=== PATIENT | female | born 1960 ===

== ENCOUNTER 2017-03-31 05:38 | Inpatient (IN) | payer MEDICAID ==
[2016-01-05 09:55] VITALS: BMI 30.2
[2017-03-31] MEDS ORDERED: Sodium Chloride 0.9% 20 ML IV ONE (07:25)
[2017-03-31] MEDS ORDERED: Propofol 10 mg/ml Inj (20 ML) ONE (07:34)
[2017-03-31] MEDS ORDERED: Midazolam 2 MG/2 ML VIAL ONE (07:34)
[2017-03-31] MEDS ORDERED: Rocuronium 10 mg/ml (5 ml) ONE (07:36)
[2017-03-31] MEDS ORDERED: Albuterol HFA 90 mcg/actuation (8 g) ONE (07:42)
[2017-03-31] MEDS: Bupivacaine-Epi 0.5%-1:200,000 PF Inj IJ ONE ×2 (08:08→09:25)
[2017-03-31] MEDS: ceFAZolin IV 2 gm in Dextrose 2 GM/50 ML BAG IVPB ONE ×2 (08:15→09:10)
[2017-03-31] MEDS ORDERED: Neostigmine Methylsulfate 3mg/3ml Syringe IV ONE (10:48)
[2017-03-31] MEDS ORDERED: Clindamycin 2% Vaginal Cream(40 gm) ONE (11:17)
[2017-03-31] MEDS ORDERED: Morphine 4 MG/ML VIAL ONE (11:21)
[2017-03-31] MEDS: HYDROmorphone 0.5 mg/0.5 ml ISec IVP PRN ×2 (11:45→12:22)
--- NOTE | 2017-03-31 12:11 | PCM.SURG1 ---
Surgeon's Initial Post Op Note - Surgeon's Notes Surgeon: juliette rodriguez md Instructor Tap Dancing: fabricio CRUZ Type of Anesthesia: General Endo, Local Pre-Operative Diagnosis: Chronic pelvic pain. urinary incontinence Operative Findings: intrapelvic intraabominal adhesions. endomteriosis. normal bladder and ureters anatomy Post-Operative Diagnosis: Endometriosis. Stress urinary incontinence. Pelvic adhesion disease Operation Performed: Robotic assited Chung procedure (urethropexy). Robotic excision of endometriosis. Enterolysis. diagnostic cystoscopy Specimen/Specimens Removed: endometriosis Estimated Blood Loss: EBL {In ML}: 10 Blood Products Given: N/A Drains Used: No Drains Post-Op Condition: Good Date of Surgery/Procedure: 03/31/17 Time of Surgery/Procedure: 12:11
[2017-03-31] MEDS ORDERED: Oxycodone/Acetaminophen 5/325 mg Tab PO PRN (12:12)
[2017-03-31] MEDS: Sodium Chloride 0.9% 1,000 ML IV SCH ×2 (13:15→22:36)
[2017-03-31] MEDS: cefOXitin 2 GM in Sodium Chloride 0.9% 100 ML IVPB SCH ×2 (13:50→22:14)
[2017-04-01 00:12] VITALS: RESP 20
[2017-04-01] MEDS: cefOXitin 2 GM in Sodium Chloride 0.9% 100 ML IVPB SCH (06:11)
[2017-04-01] MEDS: Sodium Chloride 0.9% 1,000 ML IV SCH (08:46)
[2017-04-01 11:40] LABS: BASO % 0.1 % (0.0-2.0); EOS % 0.1 % (0.0-4.0); HEMOGLOBIN 12.9 g/dL (11.0-16.0); LYMPH # 0.7 K/uL (1.0-4.3); LYMPH % 7.3 % (20.0-40.0); MEAN CELL VOLUME 88.1 fL (81.0-99.0); MEAN CORPUSCULAR HEMOGLOBIN 30.4 pg (27.0-31.0); MEAN CORPUSCULAR HGB CONC 34.5 g/dL (33.0-37.0); MEAN PLATELET VOLUME 7.7 fL (7.2-11.7); MONO # 0.5 K/uL (0.0-0.8); MONO % 5.6 % (0.0-10.0); NEUT # 7.7 K/uL (1.8-7.0); NEUT % 86.9 % (50.0-75.0); PLATELET COUNT 264 K/uL (130-400); RBC 4.22 Mil/uL (3.80-5.20); RED CELL DISTRIBUTION WIDTH 13.1 % (11.5-14.5)
[2017-04-01 11:44] LABS: WHITE BLOOD COUNT 8.9 K/uL (4.8-10.8)
[2017-04-01 11:57] LABS: ALB/GLOB RATIO 1.2 (1.0-2.1); ALBUMIN 3.6 g/dL (3.5-5.0); ALT/SGPT 32 U/L (9-52); AST/SGOT 24 U/L (14-36); BLOOD UREA NITROGEN 11 mg/dL (7-17); CALCIUM 9.1 mg/dl (8.6-10.4); GFR AFRICAN-AMERICAN > 60; GFR NON-AFRICAN AMERICAN > 60
[2017-04-01 12:04] LABS: BANDS 2 % (0-2); LYMPHOCYTE 7 % (20-40); MONOCYTE 3 % (0-10); NEUTROPHIL 88 % (50-75); PLATELET ESTIMATE NORMAL (NORMAL); TOTAL CELLS COUNTED 100
--- NOTE | 2017-04-01 12:49 | CP.PCM.PN ---
Subjective - Date & Time of Evaluation Date of Evaluation: 04/01/17 Time of Evaluation: 12:46 - Subjective Subjective: Patient states pain is well controlled. +void, +passing gas, mckayla diet. Patient has been out of bed. Objective - Vital Signs/Intake and Output Vital Signs (last 24 hours): Temp Pulse Resp BP Pulse Ox 98.2 F 73 20 107/64 97 04/01/17 00:00 04/01/17 00:00 04/01/17 00:00 04/01/17 00:00 04/01/17 00:00 Intake and Output: 04/01/17 04/01/17 06:59 18:59 Intake Total 1750 Output Total 1800 Balance -50 - Medications Medications: Current Medications Sodium Chloride (Sodium Chloride 0.9%) 1,000 mls @ 125 mls/hr IV .Q8H KAYLIN Last Admin: 04/01/17 08:46 Dose: 125 mls/hr Morphine Sulfate (Morphine) 4 mg IVP Q4H PRN PRN Reason: Pain, severe (8-10) Ondansetron HCl (Zofran Inj) 4 mg IVP ONCE PRN PRN Reason: Nausea/Vomiting Oxycodone/Acetaminophen (Percocet 5/325 Mg Tab) 2 tab PO Q4 PRN PRN Reason: Pain, moderate (4-7) Stop: 04/03/17 12:13 Last Admin: 03/31/17 22:10 Dose: 2 tab - Labs Labs: 04/01/17 11:30 04/01/17 11:30 - GI/Abdominal Exam Additional comments: Abd soft, mild distention, incisions intact, dry calves soft NT neg homans Assessment and Plan (1) Pelvic pain Assessment & Plan: POD#1 s/p urethropexy, excision of endo, enterolysis, cysto -D/c home today may shower, keep incisions clean and dry encourage ambulation rx for percocet per Dr. Ludwig f/u 2 weeks call for appt d/w Dr. Ludwig agrees with aboe Status: Acute (2) ALEX (stress urinary incontinence, female) Status: Acute
[2017-04-01] MEDS ORDERED: Fluticasone-Salmeterol 250-50mcg Diskus INH SCH (13:15)
[2017-04-01 17:18] VITALS: BP 123/76; PULSE 89; TEMP 98; O2SAT 99
--- NOTE | 2017-04-01 23:04 | PCM.OP ---
Operative Report - Operative Report Date of Surgery/Procedure: 03/31/17 Time of Surgery/Procedure: 12:00 Surgeon: Cynthia Ludwig MD Access Services Librarian: Arina CRUZ Anesthesia/Sedation: Gen. with ET tube Pre-Operative Diagnosis: Chronic pelvic pain, urinary incontinence Post-Operative Diagnosis: Chronic pelvic pain, urinary incontinence, endometriosis stage III Indication for Surgery: Worsening chronic pelvic pain as well as worsening stress urinary incontinence Operative Findings: Extensive intra-abdominal intrapelvic adhesions involving multiple loops of bowel as well as bladder. Multiple deep tissue endometriosis extending all the way up to the pelvic brim. Hypermobile urethra Procedure/Operation Description: Robotic assisted CAMERON procedure. robotic excision of endometriosis. Enterolysis. Exploration of ureters. Diagnostic cystoscopy. Detailed operative report. This is a 56 years old female with chronic pelvic pain, symptoms of urinary urge and stress incontinence with strong stress incontinence component. The patient has an extensive surgical history c/o total robotic hysterectomy and colposuspension. The patient completed an extensive preoperative workup, which included an ultrasound, complex urodynamic study, and chemistry and hematology studies. The patient reported these symptoms and problems as debilitating, and adversely affecting her quality of life. Following a period of failed conservative management, a decision was made to proceed with a more invasive approach to address the above mentioned problems. A decision was finally made to proceed with a robotic assisted excision of endometriosis and lysis of adhesions as well as robotic urethropexy namely CAMERON procedure (urethral suspension) to address the urinary incontinence. A detailed description of this robotic procedure was given to the patient, all risks and benefits of the surgical modality was reviewed, printed material was also given to the patient regarding robotic surgery and a proposed Cameron procedure. The patient fully understood all the risks and benefits and elected to proceed with this proposed procedure. The patient elected to proceed with the CAMERON as an alternative to mid urethral sling procedure utilizing polypropylene mesh which the patient elected and preferred to avoid. After proper consent was obtained from the patient was taken to the operating room, proper patient identification was completed. She was placed in dorsal lithotomy position; general anesthesia was induced without difficulty. Her legs were placed in adjustable Samir stirrups. Careful attention was placed not to over-flex or over-rotate the lower extremities at the hip or the knee joints. She was prepped and draped appropriately for robotic assisted pelvic surgery. Murillo catheter was inserted under sterile conditions. A sponge stick was inserted in the patient's vagina and attention was turned to the patient's abdomen. Local anesthetic solutions of 0.25% Marcaine with epinephrine were utilized to infiltrate the skin prior to all abdominal skin incisions. A total of 15 mL of 0.25% Marcaine was utilized throughout the procedure. While tenting the abdominal wall, a Veress needle was inserted through the umbilicus and a pneumoperitoneum was obtained. Approximately 3 cm above the umbilicus in the midline, a 1 cm vertical incision was made with a scalpel and a trocar and sleeve were introduced. A robotic camera was inserted and an initial survey of the patient's abdomen revealed a surgically removed uterus tubes and ovaries, extensive peritoneal and bowel adhesions throughout the pelvic cavity, diffuse and multiple deep endometriosis lesions throughout the posterior cul-de-sac and the pelvic sidewall extending close to the pelvic brim. The patient was placed in Trendelenburg position ready for a da Osorio robotic system to be docked. 3 robotic ports were utilized for this procedure. The first robotic port was placed on the patient' s right side approximately 5 cm above the right superior iliac crest where a small skin incision approximately 8 mm was made. The second robotic port was in the patient's left side approximately 5 cm superior to the left superior iliac crest. A small incision approximately 1 cm was made 9 cm lateral to the camera port and an automotive parts counter assistant port was inserted. All robotic ports were approximately 8 mm in size, the automotive parts counter assistant and the camera ports were 1 cm in size. For the automotive parts counter assistant and camera ports we utilized the [employer] trochar system. The placement of the trochars was all accomplished under careful and meticulous placement under direct visualization. Following the placement of all trochars, the da Osorio robotic system was docked in a parallel lateral method without difficulty. The following instruments were utilized for this procedure: the PK sealing device, a monopolar latasha and finally a ProGrasp. Meticulous and careful lysis of adhesions as well as enterolysis was accomplished utilizing the monopolar latasha and PK. Meticulous and slow lysis of bowel adhesions was necessary in order to access the bladder for the urethropexy/CAMERON procedure. Multiple deep endometriosis lesions were excised utilizing sharp and blunt dissection along the pelvic sidewall and posterior cul -de-sac. These lesions were labeled and sent to pathology. Prior to the start of the CAMERON procedure and excision of endometriosis, both ureters and their courses were visualized following the exploration of both ureters starting from the pelvic brim all the way down towards the bladder insertion, the retro- peritoneum was explored and the entire course of the ureters was observed, both ureters were peristalsing without difficulty. Next the Cameron procedure was addressed. A three way Murillo which was inserted at the start of the procedure was used to fill the bladder with approx. 300 cc of fluid. A transverse incision was made into the peritoneum in the midline over the superior bladder edge and following blunt dissection the space of Retzius was entered with no difficulty. The dissection was aimed bilaterally and laterally to the urethral neck. The Aniceto ligament was identified with no difficulty. Several sutures using 2-0 [place]-Zander sutures were used to suspend the endopelvic / vesicovaginal fascia on each side of the urethral neck to the aniceto ligament bilaterally in a tension free fashion. Excellent hemostasis noted. FloSeal was applied in the space of retzius prior to closure. The 3-0 monocryl was used to reapproximate the peritoneum over the Cameron suspension. The abdomen was throughout irrigated and cleared of all clots and debris. FloSeal as well as Interceed was applied to the incision sites. Excellent hemostasis was again noted. All robotic and laparoscopic instruments removed under direct visualization. The robotic arms were undocked, and the da Osorio robotic system was wheeled away from the patient's bedside. Both automotive parts counter assistant and camera ports were closed at the fascial layer utilizing a 2-0 Vicryl suture serial in interrupted fashion. Pneumoperitoneum was reduced and all skin incisions were closed utilizing 4-0 Monocryl in a subcutaneous fashion. Dermabond was applied to all incisions. Due to the complexity of this CAMERON procedure, the extensive of the peritoneal and bowel adhesions and finally the distorted pelvic anatomy, a diagnostic cystoscopy was completed. The Murillo catheter was removed, the bladder was distended with approximately 250 cc of normal saline. A 30 cystoscope was introduced and a survey of the bladder anatomy was completed. The base, the side barrett and the dome of the bladder appeared normal; both ureteral orifices appeared normal and were effluxing urine freely. The urethra appeared normal. A Murillo catheter was reinserted. Vaginal packing was inserted to be removed the next morning. Patient emerged from general anesthesia without difficulty, and was taken to recovery room in stable condition. Prior to incision the patient received antibiotics, prior to closure sponge lap and needle counts were correct x2. Estimated Blood Loss: 20 Blood Replaced: none Sponge/Instrument Count: Count correct x2 Drains: none Complications: no complications noted Specimen: endometriosis Discharge & Condition: discharge home on postoperative day #1
== END 2017-04-01 17:00 | disposition home or self-care (01) | DRG 365 ==
LOC: C.SDS 05:38 → C.9S 12:12 → C.4M 13:14
PROVIDERS: ADMIT Obstetrics & Gynecology; ATTEND Obstetrics & Gynecology
PROC: 0TJB8ZZ Inspection of Bladder, Via Natural or Artificial Opening Endoscopic (ICD-10-PCS; 2017-03-31)
PROC: 0TSD4ZZ Reposition Urethra, Percutaneous Endoscopic Approach (ICD-10-PCS; principal; 2017-03-31 07:45)
DX: N80.3 Endometriosis of pelvic peritoneum (principal); D25.9 Leiomyoma of uterus, unspecified; G89.29 Other chronic pain; N39.3 Stress incontinence (female) (male); N80.1 Endometriosis of ovary; R10.2 Pelvic and perineal pain; K66.0 Peritoneal adhesions (postprocedural) (postinfection); N36.41 Hypermobility of urethra